=== PATIENT | female | born 1965 | race Caucasian/White ===

== ENCOUNTER → 2016-12-18 | Outpatient (CLI) | payer BC | END | disposition home or self-care (01) | LOC: C.RDSM 14:27 | PROVIDERS: ATTEND Orthopaedic Surgery Sports Medicine | DX: M25.511 Pain in right shoulder (principal) ==

== ENCOUNTER → 2017-05-01 | Outpatient (CLI) | payer BC | END | disposition home or self-care (01) | LOC: C.RDSM 14:34 | PROVIDERS: ATTEND Orthopaedic Surgery Sports Medicine | DX: M25.512 Pain in left shoulder (principal) ==

== ENCOUNTER 2024-10-15 09:28 | Observation (INO) ==
[2024-10-15 10:26] LABS: Basophils # (auto) 0.05 K/uL (0.00-0.20); Basophils % (auto) 0.9 %; Eosinophils # (auto) 0.22 K/uL (0.00-0.50); Eosinophils % (auto) 3.9 %; Hematocrit (blood only) 42.4 % (37.0-47.0); Hemoglobin 14.1 g/dl (12.0-16.0); Immature Granulocytes # (auto) 0.01 K/uL (0.01-0.20); Immature Granulocytes % (auto) 0.2 %; Lymphocytes # (auto) 0.91 K/uL (1.20-3.40); Lymphocytes % (auto) 16.2 %; Mean Corpuscular Hemoglobin 30.3 pg (25.0-34.0); Mean Corpuscular Hgb Conc 33.3 g/dL (32.0-36.0); Mean Platelet Volume 9.9 fL (9.4-12.4); Monocytes % (auto) 8.9 %; Neutrophils # (auto) 3.94 K/uL (1.40-6.50); Neutrophils % (auto) 69.9 %; Platelet Count 194 K/uL (130-400); RDW Coefficient of Variation 12.4 % (11.5-14.5); RDW Standard Deviation 41.1 fL (36.4-46.3); Red Blood Count 4.66 M/uL (4.20-5.40); White Blood Count 5.63 K/ul (4.8-10.8)
[2024-10-15] MEDS: OPTIRAY 320 100ml IV ONE (10:29)
--- NOTE | 2024-10-15 10:33 | CT Scan Report ---
CT OF THE HEAD WITHOUT CONTRAST CLINICAL HISTORY: neuro deficit, acute stroke suspected. Headache. COMPARISON STUDY: MRI of the brain April 27, 2019. Head CT and CTA of the head April 19 9. TECHNIQUE: Helical axial images of the head were obtained without IV contrast. Automated exposure con trol was utilized for the study. A dose lowering technique was utilized adhering to the principles o f ALARA. FINDINGS: No acute intracranial hemorrhage, midline shift or mass effect is present. The ventricular system is unremarkable. The basal cisterns are patent. No extra-axial collections are present. There are no findings to suggest acute dural sinus thrombosis or acute territorial infarct. No significant calvarial abnormalities are present. Visualized portions of the sinuses and mastoid air cells are carson ar. IMPRESSION: No acute intracranial findings. ACT 112: Negative or not required by law. Electronically signed by: Lev Lambert M.D. 10/15/2024 10:32 AM
--- NOTE | 2024-10-15 10:39 | CT Scan Report ---
CT angio head w con CLINICAL HISTORY: neuro deficit, acute stroke suspected. COMPARISON STUDY: Head CT earlier today TECHNIQUE: Unenhanced axial CT scan of the brain is performed. Subsequently, following the IV adminis tration of 120 cc of Optiray, CT angiogram of the brain was performed from the skull base to the vert ex. Images are reviewed in the axial, sagittal, and coronal planes. 3-D MIPS images are created and a ssessed. IV contrast was administered without complication. All measurements were obtained according to NASCET criteria. A dose lowering technique was utilized adhering to the principles of ALARA. Findings: Left vertebral artery is dominant and the right vertebral artery is very diminutive beyond PICA, anatomic variant. Otherwise the distal vertebral and internal carotid arteries show no signific ant narrowing or occlusion. Basilar artery is diminutive but patent. The anterior, middle, and search engine marketing strategist ior cerebral arteries are patent bilaterally. Cerebral venous sinuses opacify normally. IMPRESSION: No significant arterial narrowing or occlusion seen at the brain. ACT 112: Negative or not required by law. The above report was generated using voice recognition software. It may contain grammatical, syntax o r spelling errors. Electronically signed by: Cheng Phillips M.D. 10/15/2024 10:37 AM
[2024-10-15 10:42] LABS: Alanine Aminotransferase 18 U/L (7-52); Albumin Globulin Ratio 1.7 (0.9-2); Albumin Level 4.7 gm/dl (3.4-5.0); Alkaline Phosphatase 66 U/L (34-104); Anion Gap 7 (3-11); Aspartate Aminotransferase 23 U/L (13-39); BUN Creatinine Ratio 29.1 (10-20); Bilirubin,Total 0.3 mg/dl (0.2-1.0); Blood Urea Nitrogen 30 mg/dl (6-23); Calcium 9.4 mg/dl (8.6-10.3); Carbon Dioxide 30 mmol/L (21-32); Chloride 104 mmol/L (98-107); Creatinine Clr Calc Pharmacy 57.1 ml/min; Globulin 2.7 gm/dl (2.5-4.0); Glucose 111 mg/dl (70-99(Fasting)); Magnesium 1.9 mg/dl (1.7-2.4); Potassium 3.8 mmol/L (3.5-5.1); Sodium 141 mmol/L (136-145); Total Protein 7.4 gm/dl (6.0-8.3)
--- NOTE | 2024-10-15 10:43 | CT Scan Report ---
CT ANGIOGRAPHY OF THE NECK WITH CONTRAST CLINICAL HISTORY: neuro deficit, acute stroke suspected COMPARISON STUDY: CTA of the neck April 19, 2019. Technique: CT angiography of the carotid and vertebral arteries was obtained using Optiray and 3D rec onstruction on an independent workstation. NASCET criteria was utilized. Automated exposure control was utilized for the study. A dose lowering technique was utilized adhering to the principles of ALA RA. CT DOSE: 1062.45 mGy.cm Findings: Visualized portions of the lung apices are unremarkable. There is no cervical lymphadenopat hy. No cervical spine fractures are present. The left vertebral artery is dominant. There is no disse ction, aneurysm or stenosis within the bilateral common carotid, cervical internal carotid or vertebr al arteries. IMPRESSION: Unremarkable CTA of the neck. ACT 112: Negative or not required by law. Electronically signed by: Lev Lambert M.D. 10/15/2024 10:42 AM
[2024-10-15 10:48] LABS: Troponin I High Sensitivity < 2.3 pg/ml (0-14)
[2024-10-15 10:51] LABS: INR 0.9 (0.9-1.1); Partial Thromboplastin Time 26 Seconds (21-31); Prothrombin Time 10.2 Seconds (9.0-12.0)
[2024-10-15] MEDS: CLOPIDOGREL BISULFATE 300 MG TAB PO STA (10:52)
[2024-10-15] MEDS: ASPIRIN CHEW 324 MG PO STA (10:52)
--- NOTE | 2024-10-15 10:52 | Emergency Department Note ---
Impression & Plan Headache, Stroke-like symptoms, Right facial numbness, Visual disturbance ED Provider Note NAME: SARAY GUALLPA AGE: 58 SEX: F : 1965 ARRIVES VIA: Walk-In INFORMANT: [Patient] ED PROVIDER(S): [Titus Mallory MD] CHIEF COMPLAINT: Neurosymptoms HISTORY OF PRESENT ILLNESS: The patient is a 58-year-old female who states that at 6:00 this morning, 4 hours ago, she awoke with a right sided posterior headache. She took some fmcq-crx-baqqxks medications and laid back down. At 745 she awoke and her headache was better but for a few seconds she had a shade like sensation in the area of the right eye. She felt like she could see but she felt like she was looking through a shade to see. This lasted a few seconds and then resolved. 2 hours ago, 15 minutes after the issue with the eye, the patient developed some right facial numbness and some pain in the area of the right anterior neck. The facial numbness and the neck pain has persisted, she presents for evaluation. The patient has not had difficulty with her speech or thinking. No arm or leg weakness. No chest pain or shortness of breath. She has had previous migraines but never has had a headache that caused neurologic symptoms. PMHx/PSHx/Social Hx: See Below PHYSICAL EXAM: GENERAL: Patient is in no acute distress. HEENT: No acute trauma, normocephalic atraumatic, mucous membranes moist, no nasal congestion. NECK: No stridor, no adenopathy, no meningismus, trachea is midline. No bruits heard. LUNGS: Clear to auscultation bilaterally, no wheeze, no rhonchi, breath sounds equal. HEART: Without murmurs gallops or rubs, regular rate and rhythm. ABDOMEN: Soft, nontender, no peritonitis. EXTREMITIES: No cyanosis, full range of motion of all the joints without pain or difficulty. NEUROLOGIC: Oriented x 3, no acute motor or sensory deficits, no focal weakness. No speech slur or facial droop, no extremity drift. No cerebellar dysfunction. Excellent historian. SKIN: No jaundice, no diaphoresis. DIFFERENTIAL DIAGNOSIS: Stroke, complicated migraine, intracranial bleeding, arterial dissection, among others. EMERGENCY DEPARTMENT PROCEDURES: MEDICAL DECISION MAKING: There is no leukocytosis or concerning anemia. There is a normal platelet count. No coagulopathy. No renal failure or significant electrolyte abnormality. No concerning liver enzyme elevation. ECG showed a sinus rhythm, no dysrhythmia. Cardiac enzyme testing x 1 was not consistent with acute cardiac injury. Urinalysis did not show findings of infection. Brain CT showed no acute bleed or mass effect. CT angio of the head and neck were performed, there was no significant stenosis or clot. On exam, patient had no focal neurologic findings. Her stroke scale was 0. A stroke alert was called given her presentation. The patient was seen by neurology via telemedicine. TNK was not indicated. The patient was given oral aspirin and oral Plavix at the advice of the stroke neurologist. She requires further stroke workup here in the hospital. In short, it is unclear if the patient's presentation is consistent with a complicated migraine or potentially, a small CVA/TIA. Further workup, care is required. Hospitalization is indicated. I spoke with the patient and top case assembler. The on-call hospitalist was consulted. Prior/Outside records/notes reviewed: None ECG per my interpretation: Indication was possible stroke. The ECG shows a normal sinus rhythm with a rate of 94. There is no ST elevation, no PVCs. The QTc is 460. Continuous Cardiac Monitoring per my interpretation: An order was placed for continuous cardiac monitoring. The monitor shows a rate of 96 with normal sinus rhythm. Imaging/x-ray results per my interpretation: Chronic Medical/Social conditions affecting care: None Care/Management discussed with: [facility]. Verde. Case management and the on-call hospitalist. Level of care consideration(s): After review of the information above and other included data: --I believe the patient requires escalation of care to admission Critical Care Note: I have personally spent 46 minutes of critical care time in the direct management of this patient. This includes bedside care, interpretation of diagnostic studies, and testing, discussion with consultants, patient, and family members, and other required patient management activities. This 46 minutes is in excess of all separately billable procedures. DISPOSITION: Admission Past Med/Surg History Problem List (Updated 10/15/24 @ 16:46 by Titus Mallory MD) Visual disturbance (Acute) Right facial numbness (Acute) Stroke-like symptoms (Acute) Headache (Acute) Stroke-like symptoms Panic attacks (Chronic) Depression (Chronic) Medical History Migraines Family History Other No significant family history Social History Smoking Status: Never smoker Hx Alcohol Use: No Hx Substance Use: No Preferred Language: [place] Communication Ability: Effective Addiction Medicine Physician Required: No Beliefs That Will Affect Care: None marital status: Current Living Situation: Spouse Feels Safe at Home: Yes Assistive Devices: Glasses Allergies Allergies Allergy/AdvReac Type Severity Reaction Status Date / Time azithromycin Allergy Severe Makes me Unverified 10/15/24 10:58 more sick Penicillins Allergy Severe Rash Unverified 10/15/24 10:58 Home Meds Home Medications Medication Instructions Recorded Confirmed fluoxetine 40 mg capsule (Prozac) 40 mg PO DAILY 04/19/19 10/15/24 phoyyns-dijmrigylktfn-pqmcxfsx 250 1 tab PO Q6H PRN Migraine Headache 10/15/24 10/15/24 mg-250 mg-65 mg tablet (Excedrin Migraine) conjugated estrogens 0.45 1 tab PO DAILY 10/15/24 10/15/24 mg-bazedoxifene 20 mg tablet (Duavee) multivitamin 1 tab PO DAILY 10/15/24 10/15/24 omega 8-urc-yni-fish oil 1,200 mg 1 cap PO DAILY 10/15/24 10/15/24 (144 mg-216 mg) capsule (Fish Oil) Results & Data (ED) Vital Signs Vital Signs - 24 hr 10/15/24 09:29 10/15/24 09:29 10/15/24 09:31 Temperature 36.7 C Temperature Source Temporal Artery Scan Pulse Rate 129 H Pulse Rate [Apical] 99 H Pulse Rate from SpO2 Sensor Respiratory Rate 18 Respiratory Effort / Characteristics Respiratory Depth Blood Pressure 150/79 H Blood Pressure [Left Arm] Blood Pressure Mean 102 Blood Pressure Mean [Left Arm] Pulse Oximetry 99 Oxygen Delivery Method Room Air Room Air Sepsis New/Unexplained Change in Mental Status No Sepsis Action Taken by Nursing No Action Required 10/15/24 10:03 10/15/24 10:19 10/15/24 10:19 Temperature Temperature Source Pulse Rate 99 H Pulse Rate [Apical] 96 H Pulse Rate from SpO2 Sensor Respiratory Rate 18 Respiratory Effort / Characteristics Non-Labored Spontaneous Respiratory Depth Normal Blood Pressure 170/96 H Blood Pressure [Left Arm] 170/96 H Blood Pressure Mean 135 Blood Pressure Mean [Left Arm] 120 Pulse Oximetry 97 Oxygen Delivery Method Room Air Sepsis New/Unexplained Change in Mental Status Sepsis Action Taken by Nursing 10/15/24 10:19 10/15/24 10:19 10/15/24 10:27 Temperature Temperature Source Pulse Rate Pulse Rate [Apical] 96 H Pulse Rate from SpO2 Sensor Respiratory Rate 18 Respiratory Effort / Characteristics Non-Labored Spontaneous Respiratory Depth Normal Blood Pressure 170/96 H 170/96 H Blood Pressure [Left Arm] 163/92 H Blood Pressure Mean 135 135 Blood Pressure Mean [Left Arm] 115 Pulse Oximetry 100 Oxygen Delivery Method Room Air Sepsis New/Unexplained Change in Mental Status Sepsis Action Taken by Nursing 10/15/24 10:27 10/15/24 10:27 10/15/24 10:27 Temperature Temperature Source Pulse Rate Pulse Rate [Apical] Pulse Rate from SpO2 Sensor Respiratory Rate Respiratory Effort / Characteristics Respiratory Depth Blood Pressure 163/92 H 163/92 H 163/92 H Blood Pressure [Left Arm] Blood Pressure Mean 117 117 117 Blood Pressure Mean [Left Arm] Pulse Oximetry Oxygen Delivery Method Sepsis New/Unexplained Change in Mental Status Sepsis Action Taken by Nursing 10/15/24 10:27 10/15/24 10:30 10/15/24 10:49 Temperature Temperature Source Pulse Rate 90 Pulse Rate [Apical] Pulse Rate from SpO2 Sensor Respiratory Rate 20 Respiratory Effort / Characteristics Respiratory Depth Blood Pressure 163/92 H 144/94 H Blood Pressure [Left Arm] Blood Pressure Mean 117 123 Blood Pressure Mean [Left Arm] Pulse Oximetry Oxygen Delivery Method Sepsis New/Unexplained Change in Mental Status Sepsis Action Taken by Nursing 10/15/24 10:49 10/15/24 10:49 10/15/24 10:51 Temperature Temperature Source Pulse Rate 93 H Pulse Rate [Apical] Pulse Rate from SpO2 Sensor 91 H Respiratory Rate 21 Respiratory Effort / Characteristics Respiratory Depth Blood Pressure 144/94 H 144/94 H Blood Pressure [Left Arm] Blood Pressure Mean 123 123 Blood Pressure Mean [Left Arm] Pulse Oximetry 99 Oxygen Delivery Method Sepsis New/Unexplained Change in Mental Status Sepsis Action Taken by Nursing 10/15/24 11:00 10/15/24 11:00 10/15/24 11:00 Temperature Temperature Source Pulse Rate Pulse Rate [Apical] Pulse Rate from SpO2 Sensor Respiratory Rate Respiratory Effort / Characteristics Respiratory Depth Blood Pressure 153/94 H 153/94 H 153/94 H Blood Pressure [Left Arm] Blood Pressure Mean 116 116 116 Blood Pressure Mean [Left Arm] Pulse Oximetry Oxygen Delivery Method Sepsis New/Unexplained Change in Mental Status Sepsis Action Taken by Nursing 10/15/24 11:00 10/15/24 11:00 10/15/24 11:00 Temperature Temperature Source Pulse Rate Pulse Rate [Apical] Pulse Rate from SpO2 Sensor Respiratory Rate Respiratory Effort / Characteristics Respiratory Depth Blood Pressure 153/94 H 153/94 H 153/94 H Blood Pressure [Left Arm] Blood Pressure Mean 116 116 116 Blood Pressure Mean [Left Arm] Pulse Oximetry Oxygen Delivery Method Sepsis New/Unexplained Change in Mental Status Sepsis Action Taken by Nursing 10/15/24 11:00 10/15/24 11:00 10/15/24 11:03 Temperature Temperature Source Pulse Rate 75 Pulse Rate [Apical] Pulse Rate from SpO2 Sensor 75 Respiratory Rate 16 Respiratory Effort / Characteristics Respiratory Depth Blood Pressure 153/94 H 153/94 H Blood Pressure [Left Arm] Blood Pressure Mean 116 116 Blood Pressure Mean [Left Arm] Pulse Oximetry 99 Oxygen Delivery Method Sepsis New/Unexplained Change in Mental Status Sepsis Action Taken by Prison Medications Current Medication List: was personally reviewed by me Laboratory Data Attestation: I reviewed the patient's lab results. 10/15/24 09:55 10/15/24 09:55 Lab Results 10/15/24 Range/Units 09:55 WBC 5.63 (4.8-10.8) K/ul RBC 4.66 (4.20-5.40) M/uL Hgb 14.1 (12.0-16.0) g/dl Hct 42.4 (37.0-47.0) % MCV 91.0 (80.0-100.0) fL MCH 30.3 (25.0-34.0) pg MCHC 33.3 (32.0-36.0) g/dL RDW Std Deviation 41.1 (36.4-46.3) fL RDW Coeff of Anshul 12.4 (11.5-14.5) % Plt Count 194 (130-400) K/uL MPV 9.9 (9.4-12.4) fL Immature Gran % (Auto) 0.2 % Neut % (Auto) 69.9 % Lymph % (Auto) 16.2 % [place] % (Auto) 8.9 % Eos % (Auto) 3.9 % Baso % (Auto) 0.9 % Neut # (Auto) 3.94 (1.40-6.50) K/uL Lymph # (Auto) 0.91 L (1.20-3.40) K/uL [place] # (Auto) 0.50 (0.11-0.59) K/uL Eos # (Auto) 0.22 (0.00-0.50) K/uL Baso # (Auto) 0.05 (0.00-0.20) K/uL Immature Gran # (Auto) 0.01 (0.01-0.20) K/uL PT 10.2 (9.0-12.0) Seconds INR 0.9 (0.9-1.1) APTT 26 (21-31) Seconds PTT Ratio 1.0 Sodium 141 (136-145) mmol/L Potassium 3.8 (3.5-5.1) mmol/L Chloride 104 (98-107) mmol/L Carbon Dioxide 30 (21-32) mmol/L Anion Gap 7 (3-11) BUN 30 H (6-23) mg/dl Creatinine 1.03 (0.6-1.2) mg/dl Est Cr Clr Drug Dosing 57.1 ml/min eGFR 63.82 BUN/Creatinine Ratio 29.1 H (10-20) Glucose 111 H (70-99(Fasting)) mg/dl Calcium 9.4 (8.6-10.3) mg/dl Magnesium 1.9 (1.7-2.4) mg/dl Total Bilirubin 0.3 (0.2-1.0) mg/dl AST 23 (13-39) U/L ALT 18 (7-52) U/L Alkaline Phosphatase 66 (34-104) U/L Troponin I High Sens < 2.3 (0-14) pg/ml Total Protein 7.4 (6.0-8.3) gm/dl Albumin 4.7 (3.4-5.0) gm/dl Globulin 2.7 (2.5-4.0) gm/dl Albumin/Globulin Ratio 1.7 (0.9-2) Administered Medications Acetaminophen (Acetaminophen 325 Mg Tab) 650 mg PO Q4H PRN PRN Reason: Pain or Fever Stop: 11/14/24 13:38 Last Admin: 10/15/24 14:29 Dose: 650 mg Documented By: DENNIS Enoxaparin Sodium (Enoxaparin Inj 40 Mg/0.4 Ml Syr) 40 mg SQ Q24H SOLE Stop: 11/14/24 13:44 Last Admin: 10/15/24 14:26 Dose: 40 mg Documented By: DENNIS Discontinued Medications Aspirin (Aspirin Chew 324 Mg) 324 mg PO NOW STA Stop: 10/15/24 10:47 Last Admin: 10/15/24 10:52 Dose: 324 mg Documented By: HARI Clopidogrel Bisulfate (Clopidogrel Bisulfate 300 Mg Tab) 300 mg PO NOW STA Stop: 10/15/24 10:47 Last Admin: 10/15/24 10:52 Dose: 300 mg Documented By: HARI Valproic Acid 1,000 mg/ (Dextrose) 60 mls @ 55 mls/hr IV NOW STA Stop: 10/15/24 15:53 Last Admin: 10/15/24 16:16 Dose: 55 mls/hr Documented By: DENNIS Dexamethasone 10 mg/ Syringe 2.5 mls @ 1 mls/min IV NOW STA Stop: 10/15/24 14:50 Last Admin: 10/15/24 16:16 Dose: 1 mls/min Documented By: DENNIS Ioversol (Optiray 320 100ml) 112 ml IV ONCE ONE Stop: 10/15/24 10:29 Last Admin: 10/15/24 10:29 Dose: 112 ml Documented By: OTIS Metoclopramide HCl (Metoclopramide Hcl Inj 5 Mg/Ml 2 Ml Vial) 10 mg IV NOW STA Stop: 10/15/24 14:47 Last Admin: 10/15/24 16:15 Dose: 10 mg Documented By: DENNIS Imaging Data Radiologist's Impression: Head CT 10/15/24 10:06 CT OF THE HEAD WITHOUT CONTRAST CLINICAL HISTORY: neuro deficit, acute stroke suspected. Headache. COMPARISON STUDY: MRI of the brain April 27, 2019. Head CT and CTA of the head April 19, 2019. TECHNIQUE: Helical axial images of the head were obtained without IV contrast. Automated exposure control was utilized for the study. A dose lowering technique was utilized adhering to the principles of ALARA. FINDINGS: No acute intracranial hemorrhage, midline shift or mass effect is present. The ventricular system is unremarkable. The basal cisterns are patent. No extra-axial collections are present. There are no findings to suggest acute dural sinus thrombosis or acute territorial infarct. No significant calvarial abnormalities are present. Visualized portions of the sinuses and mastoid air cells are clear. IMPRESSION: No acute intracranial findings. ACT 112: Negative or not required by law. Electronically signed by: Lev Lambert M.D. 10/15/2024 10:32 AM Head CTA 10/15/24 10:06 CT angio head w con CLINICAL HISTORY: neuro deficit, acute stroke suspected. COMPARISON STUDY: Head CT earlier today TECHNIQUE: Unenhanced axial CT scan of the brain is performed. Subsequently, following the IV administration of 120 cc of Optiray, CT angiogram of the brain was performed from the skull base to the vertex. Images are reviewed in the axial, sagittal, and coronal planes. 3-D MIPS images are created and assessed. IV contrast was administered without complication. All measurements were obtained according to NASCET criteria. A dose lowering technique was utilized adhering to the principles of ALARA. Findings: Left vertebral artery is dominant and the right vertebral artery is very diminutive beyond PICA, anatomic variant. Otherwise the distal vertebral and internal carotid arteries show no significant narrowing or occlusion. Basilar artery is diminutive but patent. The anterior, middle, and posterior cerebral arteries are patent bilaterally. Cerebral venous sinuses opacify normally. IMPRESSION: No significant arterial narrowing or occlusion seen at the brain. ACT 112: Negative or not required by law. The above report was generated using voice recognition software. It may contain grammatical, syntax or spelling errors. Electronically signed by: Cheng Phillips M.D. 10/15/2024 10:37 AM Neck CTA 10/15/24 10:06 CT ANGIOGRAPHY OF THE NECK WITH CONTRAST CLINICAL HISTORY: neuro deficit, acute stroke suspected COMPARISON STUDY: CTA of the neck April 19, 2019. Technique: CT angiography of the carotid and vertebral arteries was obtained using Optiray and 3D reconstruction on an independent workstation. NASCET criteria was utilized. Automated exposure control was utilized for the study. A dose lowering technique was utilized adhering to the principles of ALARA. CT DOSE: 1062.45 mGy.cm Findings: Visualized portions of the lung apices are unremarkable. There is no cervical lymphadenopathy. No cervical spine fractures are present. The left vertebral artery is dominant. There is no dissection, aneurysm or stenosis within the bilateral common carotid, cervical internal carotid or vertebral arteries. IMPRESSION: Unremarkable CTA of the neck. ACT 112: Negative or not required by law. Electronically signed by: Lev Lambert M.D. 10/15/2024 10:42 AM Discharge Plan Visit Data Chief Complaint: Neuro Symptoms/Deficit Stated Complaint: VISUAL PROBLEMS R EYE, FACIAL NUMBNESS, NECK PAIN ED Provider: Titus Mallory Discharge Problem: Headache, Stroke-like symptoms, Right facial numbness, Visual disturbance Patient Disposition: Admitted As Inpatient Condition: Fair Discharge Instructions Interventions: ED Discharge Assessment Last Done: 10/15/24 12:36 Discharge Problem: Headache Qualifiers: Headache type: unspecified Headache chronicity pattern: acute headache I ntractability: not intractable Qualified Code(s): R51.9 - Headache, unspecified
--- NOTE | 2024-10-15 11:04 | History & Physical Report ---
<Statement entered by Marco Payton, - 10/15/24 12:44> I have seen and examined the patient and have discussed the case with the advance practice provider. I have reviewed the advanced practitioner's documentation, and I agree with, and take responsibility for that plan of care. Seen while still in ED. Daughter at bedside. Patient reports on/off issues with vision for >1month. Occurs most often after waking from a short nap/sleep. Migraine usually frontal, today in occipital area. No photophobia. Heaadache started before other symptoms Suspect symptoms multifactorial- tension headache, msk, ocular, anxiety. R/o stroke [place] plan of care as outlined below I spent a total of 18 minutes coordinating, documenting, and providing care for this patient excluding time spent by another provider/QHP. Date of Service October 15, 2024 Assessment & Plan (1) Stroke-like symptoms: Plan: Mohini Juan is a 58y/o F with PMHx significant for psoriasis, history of uveitis s/p treatment with Humira, ocular hypertension, bilateral primary open angle glaucoma, IBS and depression who presented to the ED from home with complaint of strokelike symptoms. Refer to [facility] for further details. Initial imaging evaluation including head CT, head CTA and neck CTA is unremarkable. DAPT load given in ED as advised by TeleStroke neurologist. Additional workup pending and includes: brain MRI, echocardiogram, neurology consult, AM lipid panel/Hgb A1c, speech therapy evaluation, PT/OT evaluations. Has notable history of uveitis, ocular hypertension and glaucoma; Will need further outpatient evaluation, optometric and/or ophthalmologic, regarding episodes of blurry vision in her RIGHT eye. Other Chronic Medication Conditions Depression/Anxiety - Hold Prozac for now as this medication can reduce the effectiveness of Plavix per discussion with pharmacy via TT. DVT Prophylaxis: SQ Lovenox Code Status: FULL CODE PCP: Angela Florentino PA-C [[facility]] Disposition: Observation in med/telemetry for further inpatient evaluation and management. Patient seen in collaboration with Dr. Payton. Please see addendum. I spent a total of 45 minutes coordinating, documenting, and providing care for this patient excluding time spent in the performance of separately billed services or time spent by another provider/QHP. This included personally reviewing all current laboratories and imaging studies, medical reconciliation, outpatient chart review and discussion with specialists. This chart was completed in part utilizing Speech Voice Recognition Software. Grammatical errors, random word insertions, pronoun errors, and incomplete sentences are an occasional consequence of this system due to software limitations, ambient noise, and hardware issues. Any formal questions or concerns about the content, text, or information contained within the body of this dictation should be directly addressed to the provider for clarification. History of Present Illness Chief Complaint: Stroke Alert Primary Care Provider: NO PCP Mohini Juan is a 58y/o F with PMHx significant for psoriasis, history of uveitis s/p treatment with Humira, ocular hypertension, bilateral primary open angle glaucoma, IBS and depression who presented to the ED from home with complaint of strokelike symptoms. History obtained from the patient, daughter at bedside, discussion with ED provider and associated chart review. Mentions waking up with a right-sided posterior headache, described a tense/pounding in nature, around 6AM this morning. She took some Excedrin and then went back to sleep. Then she woke back up again shortly before 8AM and started to notice a numb feeling in her right cheek. She has been having these episodes for the past month which she describes as a "curtain covering" her right eye and then her vision becomes very blurry. These described visual changes only last a few seconds at most before fully resolving and usually only occur when she wakes up either in the morning or following a midday nap. No prior history of stroke. Has a history of migraines but mentions her headaches usually start more anteriorly plus she has never experienced facial numbness as such. In the ED, she endorses still having some right cheek numbness and also reports experiencing some pain down the right side of her anterior neck region. No recent falls or trauma. She does mention feeling somewhat unsteady on her feet this morning as her "legs went numb" but reports this has fully resolved. Does report having some lightheadedness whilst standing when she was being taken for imaging earlier but denies having any at rest. Endorses some mild numbness in her right arm. No reported facial drooping or speech changes. No decrease in strength or mobility of any of her extremities reported. Not on anticoagulation. No smoking history. No alcohol or recreational drug use. No prior history of HTN, HLD or DMII. Allergies Allergy/AdvReac Type Severity Reaction Status Date / Time azithromycin Allergy Severe Makes me Unverified 10/15/24 10:58 more sick Penicillins Allergy Severe Rash Unverified 10/15/24 10:58 Home Medications Medication Instructions Recorded Confirmed Type fluoxetine 40 mg capsule (Prozac) 40 mg PO DAILY 04/19/19 10/15/24 History dmfsxyp-srkcomwlynggu-tpwcvgzo 250 1 tab PO Q6H PRN Migraine Headache 10/15/24 10/15/24 History mg-250 mg-65 mg tablet (Excedrin Migraine) conjugated estrogens 0.45 1 tab PO DAILY 10/15/24 10/15/24 History mg-bazedoxifene 20 mg tablet (Duavee) multivitamin 1 tab PO DAILY 10/15/24 10/15/24 History omega 1-spq-ann-fish oil 1,200 mg 1 cap PO DAILY 10/15/24 10/15/24 History (144 mg-216 mg) capsule (Fish Oil) Past Med/Surg History Problem List Stroke-like symptoms Panic attacks (Chronic) Migraines (Chronic) Depression (Chronic) Family History Other No significant family history Social History Smoking Status: Never smoker Preferred Language: Malaysian marital status: Current Living Situation: Spouse Feels Safe at Home: Yes Review of Systems Review of Systems: At least ten systems reviewed and negative, except as noted in the HPI. Physical Exam Physical Exam: General: WD/WN, vitals as above, NAD, sitting up in bed, conversing appropriately. A+Ox3. Daughter at bedside. HEENT: Normocephalic, atraumatic. No facial drooping or ptosis. External ear and nose normal, oropharynx normal. Respiratory: Normal respiratory effort. Lungs clear to auscultation bilaterally. No accessory muscle use. Cardiovascular: Regular rate. Regular rhythm. Normal peripheral pulses. No BLE edema. Abdomen/GI: Normal bowel sounds, soft. Nondistended. Nontender to palpation in all quadrants. Extremities/Musculoskeletal: 5/5 strength in all extremities. No pronator drift. Tactile sensation intact in all extremities. Neurologic: No overt focal deficits as per above. CN's II-XI not formally tested but appear grossly intact bilaterally. Results & Data Results & Data Vital Signs (Past 12 Hours) Vital Signs Temp Pulse Pulse Resp BP BP Pulse Ox 10/15/24 10:27 96 H 18 163/92 H 100 10/15/24 10:19 96 H 18 170/96 H 97 10/15/24 10:03 99 H 10/15/24 09:31 36.7 C 129 H 18 150/79 H 99 10/15/24 09:29 99 H 10/15/24 09:29 O2 Del Method 10/15/24 10:27 Room Air 10/15/24 10:19 Room Air 10/15/24 10:03 10/15/24 09:31 Room Air 10/15/24 09:29 10/15/24 09:29 Room Air Laboratory Results Short CBC 10/15/24 Range/Units 09:55 WBC 5.63 (4.8-10.8) K/ul Hgb 14.1 (12.0-16.0) g/dl Hct 42.4 (37.0-47.0) % Plt Count 194 (130-400) K/uL BMP 10/15/24 09:55 Sodium 141 Potassium 3.8 Chloride 104 Carbon Dioxide 30 BUN 30 H Creatinine 1.03 Glucose 111 H Calcium 9.4 Liver Function 10/15/24 Range/Units 09:55 Total Bilirubin 0.3 (0.2-1.0) mg/dl AST 23 (13-39) U/L ALT 18 (7-52) U/L Alkaline Phosphatase 66 (34-104) U/L Albumin 4.7 (3.4-5.0) gm/dl Diagnostic Findings Head CT 10/15/24 10:06 CT OF THE HEAD WITHOUT CONTRAST CLINICAL HISTORY: neuro deficit, acute stroke suspected. Headache. COMPARISON STUDY: MRI of the brain April 27, 2019. Head CT and CTA of the head April 19, 2019. TECHNIQUE: Helical axial images of the head were obtained without IV contrast. Automated exposure control was utilized for the study. A dose lowering technique was utilized adhering to the principles of ALARA. FINDINGS: No acute intracranial hemorrhage, midline shift or mass effect is present. The ventricular system is unremarkable. The basal cisterns are patent. No extra-axial collections are present. There are no findings to suggest acute dural sinus thrombosis or acute territorial infarct. No significant calvarial abnormalities are present. Visualized portions of the sinuses and mastoid air cells are clear. IMPRESSION: No acute intracranial findings. ACT 112: Negative or not required by law. Electronically signed by: Lev Lambert M.D. 10/15/2024 10:32 AM Head CTA 10/15/24 10:06 CT angio head w con CLINICAL HISTORY: neuro deficit, acute stroke suspected. COMPARISON STUDY: Head CT earlier today TECHNIQUE: Unenhanced axial CT scan of the brain is performed. Subsequently, following the IV administration of 120 cc of Optiray, CT angiogram of the brain was performed from the skull base to the vertex. Images are reviewed in the axial, sagittal, and coronal planes. 3-D MIPS images are created and assessed. IV contrast was administered without complication. All measurements were obtained according to NASCET criteria. A dose lowering technique was utilized adhering to the principles of ALARA. Findings: Left vertebral artery is dominant and the right vertebral artery is very diminutive beyond PICA, anatomic variant. Otherwise the distal vertebral and internal carotid arteries show no significant narrowing or occlusion. Basilar artery is diminutive but patent. The anterior, middle, and posterior cerebral arteries are patent bilaterally. Cerebral venous sinuses opacify normally. IMPRESSION: No significant arterial narrowing or occlusion seen at the brain. ACT 112: Negative or not required by law. The above report was generated using voice recognition software. It may contain grammatical, syntax or spelling errors. Electronically signed by: Cheng Phillips M.D. 10/15/2024 10:37 AM Neck CTA 10/15/24 10:06 CT ANGIOGRAPHY OF THE NECK WITH CONTRAST CLINICAL HISTORY: neuro deficit, acute stroke suspected COMPARISON STUDY: CTA of the neck April 19, 2019. Technique: CT angiography of the carotid and vertebral arteries was obtained using Optiray and 3D reconstruction on an independent workstation. NASCET criteria was utilized. Automated exposure control was utilized for the study. A dose lowering technique was utilized adhering to the principles of ALARA. CT DOSE: 1062.45 mGy.cm Findings: Visualized portions of the lung apices are unremarkable. There is no cervical lymphadenopathy. No cervical spine fractures are present. The left vertebral artery is dominant. There is no dissection, aneurysm or stenosis within the bilateral common carotid, cervical internal carotid or vertebral arteries. IMPRESSION: Unremarkable CTA of the neck. ACT 112: Negative or not required by law. Electronically signed by: Lev Lambert M.D. 10/15/2024 10:42 AM Medications Administered Discontinued Medications Aspirin (Aspirin Chew 324 Mg) 324 mg PO NOW STA Stop: 10/15/24 10:47 Last Admin: 10/15/24 10:52 Dose: 324 mg Documented By: HARI Clopidogrel Bisulfate (Clopidogrel Bisulfate 300 Mg Tab) 300 mg PO NOW STA Stop: 10/15/24 10:47 Last Admin: 10/15/24 10:52 Dose: 300 mg Documented By: HARI Ioversol (Optiray 320 100ml) 112 ml IV ONCE ONE Stop: 10/15/24 10:29 Last Admin: 10/15/24 10:29 Dose: 112 ml Documented By: OTIS Code Status & VTE Plan Code Status FULL CODE
[2024-10-15 12:57] LABS: Appearance Urine Clear (Clear); Bilirubin Urine Negative (Negative); Blood Urine Negative (Negative); Color Urine Yellow; Glucose Urine UA Negative (Negative); Ketones Urine Negative (Negative); Leukocyte Esterase Urine Negative (Negative); Nitrite Urine Negative (Negative); Protein Urine Negative (Negative); Specific Gravity Urine > 1.045 (1.000-1.030); Urobilinogen Urine Negative (Negative)
[2024-10-15] MEDS ORDERED: PHARMACIST DISCHARGE MED REC CONSULT PRN (13:39)
[2024-10-15] MEDS ORDERED: PROMETHAZINE 6.25 MG/50.25 ML BAG IV PRN (13:39)
[2024-10-15] MEDS ORDERED: POLYETHYLENE (MIRALAX) 17 GM PACK PO PRN (13:39)
[2024-10-15] MEDS ORDERED: MAGNESIUM HYDROXIDE SUSP 30 ML UDC PO PRN (13:39)
--- NOTE | 2024-10-15 13:58 | Magnetic Resonance Report ---
MR brain wo con CLINICAL HISTORY: Stroke r/o COMPARISON STUDY: Head CT earlier today and MRI of 04/27/2019 FINDINGS: There is motion artifact. No restricted diffusion seen to suggest acute infarction. No mass effect, midline shift, or hydrocephalus. There is minimal periventricular increased FLAIR signal int ensity, nonspecific, usually early chronic small vessel ischemic changes. IMPRESSION: No evidence of acute infarction. ACT 112: Negative or not required by law. Electronically signed by: Cheng Phillips M.D. 10/15/2024 1:57 PM
[2024-10-15] MEDS: ENOXAPARIN INJ 40 MG/0.4 ML SYR SQ SCH (14:26)
[2024-10-15] MEDS: ACETAMINOPHEN 325 MG TAB PO PRN (14:29)
--- NOTE | 2024-10-15 14:34 | Neurology Consultation ---
Date of Consultation October 15, 2024 Assessment & Plan (1) Migraines: Mohini Juan is a 58 yo woman w pMHx significant for psoriasis, history of uveitis s/p treatment with Humira, ocular hypertension, bilateral primary open angle glaucoma, IBS and depression who presented to the ED from home with complaint of headache, numbness, vision changes. MRI since returned wtihout stroke and overall without acute or chronic finding. Given this, suspect her symptoms relate to migraine phenomenon. Can treat with cocktail while in the hospital. Pt was not interested in outpatient neurology follow-up and stated she does feel better. PCP can refer for further evaluation if pt has recurrent symptoms. Ok to stop aspirin and plavix as mri is negative. Telehealth Consultation Telehealth Information Telehealth Information: I performed this visit using a real-time telehealth connection between my location and the patients location ([facility]). After connecting through interactive tele-video, patient was identified by name and date of and/or wristband check.Patient (or authorized healthcare apparel trimmings sales representative) was informed that this was a telemedicine visit and it was being conducted confidentially over secure lines. My office door was closed and no one else was present in the room with me.Patient (or authorized healthcare apparel trimmings sales representative) provided consent to proceed with the visit, expressed an understanding of privacy and security of the telemedicine visit, and gave permission to have a hospital apparel trimmings sales representative in the room in order to assist with the visit and to conduct portions of the visit, as needed. I informed the patient (or authorized healthcare apparel trimmings sales representative) that I reviewed their record and presented the opportunity for them to ask any questions regarding the visit today. The patient agreed to participate. History of Present Illness Reason for Consultation: stroke-like symptoms Attending Physician: Marco Payton, DO History of Present Illness Per Admission H&P: "Mohini Juan is a 58y/o F with PMHx significant for psoriasis, history of uveitis s/p treatment with Humira, ocular hypertension, bilateral primary open angle glaucoma, IBS and depression who presented to the ED from home with complaint of strokelike symptoms. History obtained from the patient, daughter at bedside, discussion with ED provider and associated chart review. Mentions waking up with a right-sided posterior headache, described a tense/pounding in nature, around 6AM this morning. She took some Excedrin and then went back to sleep. Then she woke back up again shortly before 8AM and started to notice a numb feeling in her right cheek. She has been having these episodes for the past month which she describes as a "curtain covering" her right eye and then her vision becomes very blurry. These described visual changes only last a few seconds at most before fully resolving and usually only occur when she wakes up either in the morning or following a midday nap. No prior history of stroke. Has a history of migraines but mentions her headaches usually start more anteriorly plus she has never experienced facial numbness as such. In the ED, she endorses still having some right cheek numbness and also reports experiencing some pain down the right side of her anterior neck region. No recent falls or trauma. She does mention feeling somewhat unsteady on her feet this morning as her "legs went numb" but reports this has fully resolved. Does report having some lightheadedness whilst standing when she was being taken for imaging earlier but denies having any at rest. Endorses some mild numbness in her right arm. No reported facial drooping or speech changes. No decrease in strength or mobility of any of her extremities reported. Not on anticoagulation. No smoking history. No alcohol or recreational drug use. No prior history of HTN, HLD or DMII." Speaking to her she states that she started having tingling this morning around 0300 and then she had a headache develop around 0600. she states that currently she feels better after vomitting during MRI. she does say she has migraines every so often, has suffered with them since she was 18 but never had neurologic symptoms with them. Denines weakness, numbness, ahd some changes with vision with the headaches. does follow regularly with opthalmology. Allergies Allergy/AdvReac Type Severity Reaction Status Date / Time azithromycin Allergy Severe Makes me Unverified 10/15/24 10:58 more sick Penicillins Allergy Severe Rash Unverified 10/15/24 10:58 Home Medications Medication Instructions Recorded Confirmed Type fluoxetine 40 mg capsule (Prozac) 40 mg PO DAILY 04/19/19 10/15/24 History pvwogeg-heiylaiyrfkzv-nzlcxaho 250 1 tab PO Q6H PRN Migraine Headache 10/15/24 10/15/24 History mg-250 mg-65 mg tablet (Excedrin Migraine) conjugated estrogens 0.45 1 tab PO DAILY 10/15/24 10/15/24 History mg-bazedoxifene 20 mg tablet (Duavee) multivitamin 1 tab PO DAILY 10/15/24 10/15/24 History omega 2-lub-osq-fish oil 1,200 mg 1 cap PO DAILY 10/15/24 10/15/24 History (144 mg-216 mg) capsule (Fish Oil) Patient History Family History Other No significant family history Social History Smoking Status: Never smoker Hx Alcohol Use: No Hx Substance Use: No Preferred Language: Scottish Communication Ability: Effective Casting Room Operator Required: No Beliefs That Will Affect Care: None marital status: Current Living Situation: Spouse Feels Safe at Home: Yes Assistive Devices: Glasses Review of Systems negative aside from HPI Physical Exam Resting in bed, comfortable, alert and oriented x 3, speech clear without dysarthria or aphasia. CN intact, no facial droop. Able to lift all extremiteis against gravity. No Ataxia wiht FtN Results & Data Vital Signs (Past 12 Hours) Vital Signs Temp Pulse Pulse Resp BP BP Pulse Ox 10/15/24 14:19 89 10/15/24 13:39 10/15/24 13:39 36.4 C L 76 16 147/83 H 98 10/15/24 12:33 74 12 99 10/15/24 12:30 136/87 10/15/24 12:30 136/87 10/15/24 12:21 86 20 98 10/15/24 12:18 80 13 100 10/15/24 12:00 146/88 H 10/15/24 12:00 146/88 H 10/15/24 12:00 146/88 H 10/15/24 12:00 146/88 H 10/15/24 12:00 146/88 H 10/15/24 12:00 146/88 H 10/15/24 12:00 146/88 H 10/15/24 12:00 146/88 H 10/15/24 12:00 73 16 146/88 H 99 10/15/24 11:51 78 14 100 10/15/24 11:42 91 H 27 H 98 10/15/24 11:39 86 20 98 10/15/24 11:30 126/91 10/15/24 11:30 126/91 10/15/24 11:30 126/91 10/15/24 11:30 126/91 10/15/24 11:30 126/91 10/15/24 11:30 126/91 10/15/24 11:30 126/91 10/15/24 11:30 126/91 10/15/24 11:30 126/91 10/15/24 11:30 126/91 10/15/24 11:30 126/91 10/15/24 11:30 126/91 10/15/24 11:30 126/91 10/15/24 11:30 126/91 10/15/24 11:30 126/91 10/15/24 11:24 81 18 96 10/15/24 11:18 80 13 95 10/15/24 11:03 75 16 99 10/15/24 11:00 153/94 H 10/15/24 11:00 153/94 H 10/15/24 11:00 153/94 H 10/15/24 11:00 153/94 H 10/15/24 11:00 153/94 H 10/15/24 11:00 153/94 H 10/15/24 11:00 153/94 H 10/15/24 11:00 153/94 H 10/15/24 10:51 93 H 21 99 10/15/24 10:49 144/94 H 10/15/24 10:49 144/94 H 10/15/24 10:49 144/94 H 10/15/24 10:30 90 20 10/15/24 10:27 163/92 H 10/15/24 10:27 163/92 H 10/15/24 10:27 163/92 H 10/15/24 10:27 163/92 H 10/15/24 10:27 96 H 18 163/92 H 100 10/15/24 10:19 170/96 H 10/15/24 10:19 170/96 H 10/15/24 10:19 170/96 H 10/15/24 10:19 96 H 18 170/96 H 97 10/15/24 10:03 99 H 10/15/24 09:31 36.7 C 129 H 18 150/79 H 99 10/15/24 09:29 99 H 10/15/24 09:29 O2 Del Method 10/15/24 14:19 10/15/24 13:39 Room Air 10/15/24 13:39 Room Air 10/15/24 12:33 10/15/24 12:30 10/15/24 12:30 10/15/24 12:21 10/15/24 12:18 10/15/24 12:00 10/15/24 12:00 10/15/24 12:00 10/15/24 12:00 10/15/24 12:00 10/15/24 12:00 10/15/24 12:00 10/15/24 12:00 10/15/24 12:00 10/15/24 11:51 10/15/24 11:42 10/15/24 11:39 10/15/24 11:30 10/15/24 11:30 10/15/24 11:30 10/15/24 11:30 10/15/24 11:30 10/15/24 11:30 10/15/24 11:30 10/15/24 11:30 10/15/24 11:30 10/15/24 11:30 10/15/24 11:30 10/15/24 11:30 10/15/24 11:30 10/15/24 11:30 10/15/24 11:30 10/15/24 11:24 10/15/24 11:18 10/15/24 11:03 10/15/24 11:00 10/15/24 11:00 10/15/24 11:00 10/15/24 11:00 10/15/24 11:00 10/15/24 11:00 10/15/24 11:00 10/15/24 11:00 10/15/24 10:51 10/15/24 10:49 10/15/24 10:49 10/15/24 10:49 10/15/24 10:30 10/15/24 10:27 10/15/24 10:27 10/15/24 10:27 10/15/24 10:27 10/15/24 10:27 Room Air 10/15/24 10:19 10/15/24 10:19 10/15/24 10:19 10/15/24 10:19 Room Air 10/15/24 10:03 10/15/24 09:31 Room Air 10/15/24 09:29 10/15/24 09:29 Room Air Diagnostic Findings MRI Brain - negative for acute or chronic finding CT/CTA unremarkable
--- NOTE | 2024-10-15 14:35 | Electrocardiogram Report ---
Test Reason : Blood Pressure : */* mmHG Vent. Rate : 94 BPM Atrial Rate : 94 BPM P-R Int : 132 ms QRS Dur : 84 ms QT Int : 368 ms P-R-T Axes : 60 24 60 degrees QTcB Int : 460 ms Normal sinus rhythm Normal ECG When compared with ECG of 19-Apr-2019 13:59, No significant change was found Confirmed by Mert Roberson ([id number]) on 10/15/2024 2:35:07 PM Referred By: Confirmed By: Mert Roberson
[2024-10-15] MEDS ORDERED: dexAMETHasone**PF** 10 MG/ML VIAL IV ONE (14:46)
--- NOTE | 2024-10-15 14:48 | Communication Note ---
Date of Service: October 15, 2024 Communication with neurology, MRI no evidence of stroke. Low suspicion for cerebrovascular event. No need for antiplatelet treatment. High suspicion for complex migraine. Trial of ReglanRaudel Decadron migraine cocktail.
[2024-10-15] MEDS: METOCLOPRAMIDE HCL INJ 5 MG/ML 2 ML VIAL IV STA (16:15)
[2024-10-15] MEDS: VALPROATE SOD 1,000 MG in DEXTROSE 5% 50 ML IV STA (16:16)
[2024-10-15] MEDS: dexAMETHasone 10 MG in SYRINGE 0 ML IV STA (16:16)
[2024-10-15] MEDS: KETOROLAC TROMETHAMINE 15 MG/ML VIAL IV PRN (19:10)
[2024-10-15] MEDS: LORazepam 0.5 MG TAB PO PRN (23:06)
[2024-10-16 06:35] LABS: Hematocrit (blood only) 40.2 % (37.0-47.0); Hemoglobin 13.4 g/dl (12.0-16.0); Mean Corpuscular Hemoglobin 29.8 pg (25.0-34.0); Mean Corpuscular Hgb Conc 33.3 g/dL (32.0-36.0); Mean Corpuscular Volume 89.5 fL (80.0-100.0); Mean Platelet Volume 9.8 fL (9.4-12.4); Platelet Count 179 K/uL (130-400); RDW Coefficient of Variation 12.4 % (11.5-14.5); RDW Standard Deviation 40.6 fL (36.4-46.3); Red Blood Count 4.49 M/uL (4.20-5.40); White Blood Count 6.22 K/ul (4.8-10.8)
[2024-10-16 06:58] LABS: BUN Creatinine Ratio 25.9 (10-20); Calcium 9.2 mg/dl (8.6-10.3); Chol HDL Ratio 2.6 (0-5); Creatinine Clr Calc Pharmacy 72.6 ml/min; Magnesium 2.1 mg/dl (1.7-2.4)
[2024-10-16 08:21] LABS: Estimated Average Glucose 111 mg/dl; Hemoglobin A1C 5.5 % (4.5-5.6)
[2024-10-16] MEDS: MULTIVITAMIN TAB PO SCH (08:34)
[2024-10-16 08:38] VITALS: BP 122/80
[2024-10-16] MEDS ORDERED: FLUoxetine HCL 20 MG CAP PO SCH (09:00)
[2024-10-16 12:04] VITALS: PULSE 97; RESP 17; TEMP 97.7; O2SAT 98
--- NOTE | 2024-10-16 12:19 | Discharge Summary ---
Discharge Summary Date of Service October 16, 2024 Principal Dx & Hospital Course #1 = Principal Diagnosis (1) Stroke-like symptoms: Plan Mohini Juan is a 58y/o F with PMHx significant for psoriasis, history of uveitis s/p treatment with Humira, ocular hypertension, bilateral primary open angle glaucoma, IBS and depression who presented to the ED from home with complaint of strokelike symptoms. Pt was evaluated by the telestroke service. Initial imaging evaluation including head CT, head CTA and neck CTA was unremarkable. DAPT load given in ED as advised by TeleStroke neurologist. Brain MRI was negative Echocardiogram with EF 60-65%, trivial loculated anterior pericardial shunt, normal LV wall motion Hgba1c of 5.5 Lipid panel with total cholesterol of 209, HDL 81, triglycerides 77 Neurology consulted, appreciate recs "...Mohini Juan is a 58 yo woman w pMHx significant for psoriasis, history of uveitis s/p treatment with Humira, ocular hypertension, bilateral primary open angle glaucoma, IBS and depression who presented to the ED from home with complaint of headache, numbness, vision changes. MRI since returned without stroke and overall without acute or chronic finding. Given this, suspect her symptoms relate to migraine phenomenon. Can treat with cocktail while in the hospital. Pt was not interested in outpatient neurology follow-up and stated she does feel better. PCP can refer for further evaluation if pt has recurrent symptoms. Ok to stop aspirin and plavix as mri is negative..." Pt given migraine cocktail with improvement, discharged with prn sumatriptan with her home excedrin and close Neurology followup advised. speech therapy evaluation unremarkable PT/OT evaluations noting pt back to baseline at time of exam Has notable history of uveitis, ocular hypertension and glaucoma Will need further outpatient evaluation with Neurology (pt later agreeable on discharge), optometric and/or ophthalmologic followup regarding episodes of blurry vision in her RIGHT eye. Other Chronic Medication Conditions Depression/Anxiety - Resume Prozac on discharge Notes For Next Care Provider Medication Changes From Visit Sumatriptan prn for migraines Admission HPI Per Admitting Provider Mohini Juan is a 58y/o F with PMHx significant for psoriasis, history of uveitis s/p treatment with Humira, ocular hypertension, bilateral primary open angle glaucoma, IBS and depression who presented to the ED from home with complaint of strokelike symptoms. History obtained from the patient, daughter at bedside, discussion with ED provider and associated chart review. Mentions waking up with a right-sided posterior headache, described a tense/pounding in nature, around 6AM this morning. She took some Excedrin and then went back to sleep. Then she woke back up again shortly before 8AM and started to notice a numb feeling in her right cheek. She has been having these episodes for the past month which she describes as a "curtain covering" her right eye and then her vision becomes very blurry. These described visual changes only last a few seconds at most before fully resolving and usually only occur when she wakes up either in the morning or following a midday nap. No prior history of stroke. Has a history of migraines but mentions her headaches usually start more anteriorly plus she has never experienced facial numbness as such. In the ED, she endorses still having some right cheek numbness and also reports experiencing some pain down the right side of her anterior neck region. No recent falls or trauma. She does mention feeling somewhat unsteady on her feet this morning as her "legs went numb" but reports this has fully resolved. Does report having some lightheadedness whilst standing when she was being taken for imaging earlier but denies having any at rest. Endorses some mild numbness in her right arm. No reported facial drooping or speech changes. No decrease in strength or mobility of any of her extremities reported. Not on anticoagulation. No smoking history. No alcohol or recreational drug use. No prior history of HTN, HLD or DMII. Admission Exam Per Admitting Provider General: WD/WN, vitals as above, NAD, sitting up in bed, conversing appropriately. A+Ox3. Daughter at bedside. HEENT: Normocephalic, atraumatic. No facial drooping or ptosis. External ear and nose normal, oropharynx normal. Respiratory: Normal respiratory effort. Lungs clear to auscultation bilaterally. No accessory muscle use. Cardiovascular: Regular rate. Regular rhythm. Normal peripheral pulses. No BLE edema. Abdomen/GI: Normal bowel sounds, soft. Nondistended. Nontender to palpation in all quadrants. Extremities/Musculoskeletal: 5/5 strength in all extremities. No pronator drift. Tactile sensation intact in all extremities. Neurologic: No overt focal deficits as per above. CN's II-XI not formally tested but appear grossly intact bilaterally. Discharge Exam General: Alert, oriented. No acute distress Skin: No noted rashes or bruises Psych: Appropriate mood and affect Neuro: No gross deficits HEENT: NC/AT, EOMI, oropharynx moist. CV: RRR, Normal s1, s2. No murmurs appreciated Resp: Breath sounds clear bilaterally, no increased effort of breathing Abdomen: Soft, nontender, nondistended Extremities: No edema in lower extremities bilaterally. Updated Medication List Medication Instructions Recorded Confirmed Type fluoxetine 40 mg capsule (Prozac) 40 mg PO DAILY 04/19/19 10/15/24 History xlumugr-qjmyvhluvvkde-gbdzzjfp 250 1 tab PO Q6H PRN Migraine Headache 10/15/24 10/15/24 History mg-250 mg-65 mg tablet (Excedrin Migraine) conjugated estrogens 0.45 1 tab PO DAILY 10/15/24 10/15/24 History mg-bazedoxifene 20 mg tablet (Duavee) multivitamin 1 tab PO DAILY 10/15/24 10/15/24 History omega 6-vuw-naq-fish oil 1,200 mg 1 cap PO DAILY 10/15/24 10/15/24 History (144 mg-216 mg) capsule (Fish Oil) sumatriptan succinate 25 mg tablet See Rx Instructions PO .COMPLEX 10/16/24 Rx #30 tabs Hospital Stay Data Consultations 10/15/24 11:23 ED Decision to Admit Stat 10/15/24 11:59 Consult Neurology Routine Diagnostic Imagining Performed 10/15/24 10:06 CT angio head w con Stat CT angio neck with con Stat CT head/brain wo con Stat 10/15/24 11:59 MR brain wo con Routine Head CT 10/15/24 10:06 CT OF THE HEAD WITHOUT CONTRAST CLINICAL HISTORY: neuro deficit, acute stroke suspected. Headache. COMPARISON STUDY: MRI of the brain April 27, 2019. Head CT and CTA of the head April 19, 2019. TECHNIQUE: Helical axial images of the head were obtained without IV contrast. Automated exposure control was utilized for the study. A dose lowering technique was utilized adhering to the principles of ALARA. FINDINGS: No acute intracranial hemorrhage, midline shift or mass effect is present. The ventricular system is unremarkable. The basal cisterns are patent. No extra-axial collections are present. There are no findings to suggest acute dural sinus thrombosis or acute territorial infarct. No significant calvarial abnormalities are present. Visualized portions of the sinuses and mastoid air cells are clear. IMPRESSION: No acute intracranial findings. ACT 112: Negative or not required by law. Electronically signed by: Lev Lambert M.D. 10/15/2024 10:32 AM Head CTA 10/15/24 10:06 CT angio head w con CLINICAL HISTORY: neuro deficit, acute stroke suspected. COMPARISON STUDY: Head CT earlier today TECHNIQUE: Unenhanced axial CT scan of the brain is performed. Subsequently, following the IV administration of 120 cc of Optiray, CT angiogram of the brain was performed from the skull base to the vertex. Images are reviewed in the axial, sagittal, and coronal planes. 3-D MIPS images are created and assessed. IV contrast was administered without complication. All measurements were obtained according to NASCET criteria. A dose lowering technique was utilized adhering to the principles of ALARA. Findings: Left vertebral artery is dominant and the right vertebral artery is very diminutive beyond PICA, anatomic variant. Otherwise the distal vertebral and internal carotid arteries show no significant narrowing or occlusion. Basilar artery is diminutive but patent. The anterior, middle, and posterior cerebral arteries are patent bilaterally. Cerebral venous sinuses opacify normally. IMPRESSION: No significant arterial narrowing or occlusion seen at the brain. ACT 112: Negative or not required by law. The above report was generated using voice recognition software. It may contain grammatical, syntax or spelling errors. Electronically signed by: Cheng Phillips M.D. 10/15/2024 10:37 AM Neck CTA 10/15/24 10:06 CT ANGIOGRAPHY OF THE NECK WITH CONTRAST CLINICAL HISTORY: neuro deficit, acute stroke suspected COMPARISON STUDY: CTA of the neck April 19, 2019. Technique: CT angiography of the carotid and vertebral arteries was obtained using Optiray and 3D reconstruction on an independent workstation. NASCET criteria was utilized. Automated exposure control was utilized for the study. A dose lowering technique was utilized adhering to the principles of ALARA. CT DOSE: 1062.45 mGy.cm Findings: Visualized portions of the lung apices are unremarkable. There is no cervical lymphadenopathy. No cervical spine fractures are present. The left vertebral artery is dominant. There is no dissection, aneurysm or stenosis within the bilateral common carotid, cervical internal carotid or vertebral arteries. IMPRESSION: Unremarkable CTA of the neck. ACT 112: Negative or not required by law. Electronically signed by: Lev Lambert M.D. 10/15/2024 10:42 AM Brain MRI 10/15/24 11:59 MR brain wo con CLINICAL HISTORY: Stroke r/o COMPARISON STUDY: Head CT earlier today and MRI of 04/27/2019 FINDINGS: There is motion artifact. No restricted diffusion seen to suggest acute infarction. No mass effect, midline shift, or hydrocephalus. There is minimal periventricular increased FLAIR signal intensity, nonspecific, usually early chronic small vessel ischemic changes. IMPRESSION: No evidence of acute infarction. ACT 112: Negative or not required by law. Electronically signed by: Cheng Phillips M.D. 10/15/2024 1:57 PM Pending Results Patient Have Any Pending Studies at Discharge: No Discharge Instructions Given to Patient (Per Discharging Provider) Mohini, You were admitted and treated for an acute migraine. A stroke was ruled out. You are being discharged with the medication sumatriptan to help with your headache. Please take it as prescribed as needed to help. You can continue with your home Excedrin migraine use. Please keep close followup with your primary care provider after discharge. Please also keep close followup with Neurology after discharge. Your primary care provider can refer you to one. We will also make attempts on our end as well to connect you to a neurologist. Please do not hesitate to come back to the emergency room if your symptoms worsen or return. It was a pleasure taking care of you while you were here. Total Time Total Time Spent Total Time Spent (In Minutes): 60
== END 2024-10-16 13:00 | disposition home or self-care (01) ==
LOC: 2N 09:28 → ED 09:28 → SUATTDRO 11:13 → 2N 12:36